=== PATIENT | male | born 1950 | race Caucasian/White ===

== ENCOUNTER 2017-04-22 21:32 | Inpatient (IN) | payer MEDICARE ==
[~2017-04-22] VITALS: Ht 172.7 cm; Wt 112.3 kg
[~2017-04-22 21:32] MED LIST: AMIT25TA9 PO; AMLO10TA2 PO; ASPI81TA11 PO; ATOR40TA16 PO; B12-1CHW CHEW; CALC600T25 PO; CYCL1TAB29 PO; CYMB30CA PO; FLAX10006 PO; GABA600T PO; HYDR25TA5 PO; LISI40TA PO; METO200T3 PO; NORC5TAB PO; TIZA2TAB PO; VENL75TA2 PO; VITACAP32; ZOLP5TAB3 PO
[2017-04-22 21:44] VITALS: BP 105/59; PULSE 71; RESP 20; TEMP 98.6; O2SAT 98
--- NOTE | 2017-04-22 21:45 | PD ---
HPI Chief Complaint: fall Time Seen by Provider: 21:37 Travel History International Travel<30 days: No Contact w/Intl Traveler<30days: No History of Present Illness HPI 66-year-old male states he lost his footing and injured his right ankle shortly prior to arrival. He does note drinking alcohol today. He did not hit his head or black out. He denies other concurrent complaints. He received 10 mg of morphine prior to arrival. Quality pain is sharp. Pain is currently about 5 out of 10. Pain is worse with movement. PFSH Past Medical History Narrative Medical Hypertension, elevated triglycerides Past Surgical History Narrative Surgical Gastric bypass, intestinal obstruction with exploratory laparoscopy, appendectomy Social History Alcohol Use: Yes Tobacco Use: No Allergies-Medications (Allergen,Severity, Reaction): Coded Allergies: No Known Allergies (Unverified , 03/17/17) Reported Meds & Prescriptions Reported Meds & Active Scripts Active Atorvastatin (Atorvastatin Calcium) 40 Mg Tab 40 Mg PO HS [place] (Hydrocodone-Acetaminophen) 5-325 mg Tab 1 Tab PO Q6H PRN Zolpidem (Zolpidem Tartrate) 5 Mg Tab 5 Mg PO HS PRN Gabapentin 600 Mg Tab 600 Mg PO TID Venlafaxine ER 24 HR (Venlafaxine HCl) 75 Mg Tab 75 Mg PO DAILY Tizanidine (Tizanidine HCl) 2 Mg Tab 2 Mg PO TID Amlodipine (Amlodipine Besylate) 10 Mg Tab 10 Mg PO DAILY Lisinopril 40 Mg Tab 40 Mg PO DAILY Hydrochlorothiazide 25 Mg Tab 25 Mg PO DAILY Metoprolol Succinate ER 24 HR (Metoprolol Succinate) 200 Mg Tab 200 Mg PO DAILY Amitriptyline (Amitriptyline HCl) 25 Mg Tab 25 Mg PO HS Reported Flaxseed Oil (Flaxseed (Linseed)) 1,000 Mg Cap 1,000 Mg PO DAILY Calcium (Calcium Carbonate) 600 Mg Tab 600 Mg PO DAILY [id number] (Methylcobalamin) 1 Mg Chew 1 Mg CHEW DAILY Aspirin EC (Aspirin) 81 Mg Tabdr 81 Mg PO DAILY Flexeril (Cyclobenzaprine HCl) 10 Mg Tab 10 Mg PO TID Cymbalta DR (Duloxetine HCl) 30 Mg Capdr 30 Mg PO DAILY Vitamin C (Vitamins C & E) Cap Review of Systems ROS Limitations: Poor Historian Except as stated in HPI: all other systems reviewed are Neg Physical Exam Exam Limitations: Poor Historian Narrative General: 66 y/o patient who is uncomfortable Skin: trauma noted to right ankle with abrasion over medial malleolus area Eyes: Pupils equal NECK: no pain with range of motion in midline Cardiovascular: Regular rate and rhythm Respiratory: Normal respiratory effort noted, clear to auscultation bilaterally Abdomen: soft, nontender, nondistended Extremities: Pain with palpation of right ankle with obvious deformity, no lacerations over, neurovascularly intact, no pain with rom of other joints Neuro: awake, alert, sensation and motor grossly intact other than ankle which is limited with acute fracture Data Data Last Documented VS Vital Signs Date Time Temp Pulse Resp B/P Pulse Ox O2 Delivery O2 Flow Rate FiO2 04/22/17 23:00 69 18 99/56 96 Nasal Cannula 3 04/22/17 21:44 98.6 Orders Ankle, Limited (Ap&Lat) (04/22/17 21:37) Electrocardiogram (04/22/17 21:37) Complete Blood Count With Diff (04/22/17 21:37) Comprehensive Metabolic Panel (04/22/17 21:37) Prothrombin Time / Inr (Pt) (04/22/17 21:37) Act Partial Throm Time (Ptt) (04/22/17 21:37) Type And Screen (04/22/17 21:37) Chest, Single Ap (04/22/17 21:37) Iv Access Insert/Monitor (04/22/17 21:37) Oximetry (04/22/17 21:37) Ecg Monitoring (04/22/17 21:37) Sodium Chloride 0.9% Flush (Ns Flush) (04/22/17 21:45) Diet Npo (04/23/17 Breakfast) Propofol 500 Mg/50 Ml Inj (Diprivan 500 (04/22/17 22:15) Ankle, Complete (Bmk1ldk) (04/22/17 ) Fiberglass Short Leg Splint Ad (04/22/17 ) Fiberglass Sugartong Sp Ad Sl (04/22/17 ) Ice Cuff (04/22/17 ) Consult Orthopedic (04/22/17 ) Cefazolin Inj (Ancef Inj) (04/22/17 23:30) Admit Order (Ed Use Only) (04/22/17 23:35) Labs Laboratory Tests Test 04/22/17 21:45 White Blood Count 10.7 TH/MM3 Red Blood Count 4.94 MIL/MM3 Hemoglobin 13.9 GM/DL Hematocrit 43.3 % Mean Corpuscular Volume 87.6 FL Mean Corpuscular Hemoglobin 28.2 PG Mean Corpuscular Hemoglobin 32.1 % Concent Red Cell Distribution Width 15.1 % Platelet Count 287 TH/MM3 Mean Platelet Volume 8.2 FL Neutrophils (%) (Auto) 46.8 % Lymphocytes (%) (Auto) 39.8 % Monocytes (%) (Auto) 10.6 % Eosinophils (%) (Auto) 2.0 % Basophils (%) (Auto) 0.8 % Neutrophils # (Auto) 5.0 TH/MM3 Lymphocytes # (Auto) 4.2 TH/MM3 Monocytes # (Auto) 1.1 TH/MM3 Eosinophils # (Auto) 0.2 TH/MM3 Basophils # (Auto) 0.1 TH/MM3 CBC Comment DIFF FINAL Differential Comment Prothrombin Time 9.9 SEC Prothromb Time International 0.9 RATIO Ratio Activated Partial 20.1 SEC Thromboplast Time Sodium Level 139 MEQ/L Potassium Level 4.6 MEQ/L Chloride Level 102 MEQ/L Carbon Dioxide Level 28.9 MEQ/L Anion Gap 8 MEQ/L Blood Urea Nitrogen 19 MG/DL Creatinine 1.33 MG/DL Estimat Glomerular Filtration 54 ML/MIN Rate Random Glucose 96 MG/DL Calcium Level 8.2 MG/DL Total Bilirubin 0.4 MG/DL Aspartate Amino Transf 28 U/L (AST/SGOT) Alanine Aminotransferase 23 U/L (ALT/SGPT) Alkaline Phosphatase 64 U/L Total Protein 7.0 GM/DL Albumin 3.7 GM/DL Blood Type AB POSITIVE Antibody Screen NEGATIVE Blood Bank Comment [facility] Medical Decision Making Medical Screen Exam Complete: Yes Emergency Medical Condition: Yes Medical Record Reviewed: Yes (past history confirm) Interpretation(s) CBC & BMP Diagram 04/22/17 21:45 Last 24 hours Impressions Chest X-Ray 04/22/172136 Signed Impressions: Service Date/Time: Saturday, April 22, 2017 21:52 - CONCLUSION: 1. Cardiomegaly. Dependent atelectasis. No pneumothorax or significant effusion. Bright Ordaz MD Ankle X-Ray 04/22/172136 Signed Impressions: Service Date/Time: Saturday, April 22, 2017 21:47 - CONCLUSION: 1. Fracture with medial dislocation of the right ankle. Bright Ordaz MD Ankle X-Ray 04/22/17 0000 Signed Impressions: Service Date/Time: Saturday, April 22, 2017 22:38 - CONCLUSION: 1. Persistent medial subluxation of the distal tibia. Fractures of the lateral malleolus and posterior malleolus region. Bright Ordaz MD Differential Diagnosis Fracture, dislocation, strain Narrative Course will check labs, xr and he will need reduced Ankle was reduced to the best of my abilities, splint place, will discuss with ortho Patient and updated and agree to admission Procedures Procedure Narrative After the risks and benefits were discussed the following procedure was performed, at bedside: After patient had received 10 mg of morphine but the ambulance team, reduction of right ankle with gentle traction, was neurovascularly intact after, patient tolerated procedure. We'll check x-ray, personally held while splint was placed Physician Communication Physician Communication dr erickson's pa states to keep npo, will put on for OR resident team agrees to admit Diagnosis Primary Impression: Fracture dislocation of right ankle Qualified Code: S82.891A - Fracture dislocation of right ankle, closed, initial encounter Admitting Information Admitting Physician Requests: Admit Zaida Cochran MD Apr 22, 2017 21:45
[2017-04-22 21:48] VITALS: RESP 20; O2SAT 89
[2017-04-22 21:49] VITALS: RESP 20; O2SAT 98
[2017-04-22] MEDS ORDERED: PROPOFOL 500 MG/50 ML BTL IV ONE (22:15)
--- NOTE | 2017-04-22 22:37 | RADRPT ---
EXAM DATE/TIME: 04/22/2017 21:52 [facility] COMPARISON: No previous studies available for comparison. INDICATIONS : Pre-op fracture ankle MEDICAL HISTORY : Unknown SURGICAL HISTORY : Unknown ENCOUNTER: Initial ACUITY: 1 day PAIN SCORE: 9/10 LOCATION: Bilateral chest FINDINGS: A single view of the chest demonstrates the lungs to be symmetrically aerated without evidence of mas s, infiltrate or effusion. The cardiomediastinal contours are prominent. Minimal dependent atelectas is. CONCLUSION: 1. Cardiomegaly. Dependent atelectasis. No pneumothorax or significant effusion. Bright Ordaz MD on April 22, 2017 at 22:35 Board Certified Radiologist. This report was verified electronically.
--- NOTE | 2017-04-22 22:39 | RADRPT ---
EXAM DATE/TIME: 04/22/2017 21:47 [facility] COMPARISON: No previous studies available for comparison. INDICATIONS : Trauma, right ankle deformity MEDICAL HISTORY : Unknown SURGICAL HISTORY : Unknown ENCOUNTER: Initial ACUITY: 1 day PAIN SCORE: 9/10 LOCATION: Right ankle FINDINGS: The medial and lateral malleolus are fractured and there is medial dislocation of the distal tibia on the talar dome. There is also some anterior displacement. CONCLUSION: 1. Fracture with medial dislocation of the right ankle. Bright Ordaz MD on April 22, 2017 at 22:36 Board Certified Radiologist. This report was verified electronically.
[2017-04-22 22:43] LABS: BASOPHIL # 0.1 TH/MM3 (0-0.2); BASOPHIL % 0.8 % (0.0-2.0); EOSINOPHIL # 0.2 TH/MM3 (0-0.4); HEMATOCRIT 43.3 % (39.0-51.0); HEMO FLAGS DIFF FINAL; LYMPH % 39.8 % (9.0-44.0); LYMPHOCYTE # 4.2 TH/MM3 (1.0-4.8); MEAN CELL VOLUME 87.6 FL (80.0-100.0); MEAN CORPUSCULAR HEMOGLOBIN 28.2 PG (27.0-34.0); MEAN CORPUSCULAR HGB CONC 32.1 % (32.0-36.0); MONO % 10.6 % (0.0-8.0); NEUT % 46.8 % (16.0-70.0); PLATELET COUNT 287 TH/MM3 (150-450); RED BLOOD COUNT 4.94 MIL/MM3 (4.50-5.90); RED CELL DISTRIBUTION WIDTH 15.1 % (11.6-17.2); WHITE BLOOD COUNT 10.7 TH/MM3 (4.0-11.0)
[2017-04-22 22:47] LABS: INTERNATIONAL NORMALIZED RATIO 0.9 RATIO; PROTHROMBIN TIME - PATIENT 9.9 SEC (9.8-11.6)
[2017-04-22 22:48] LABS: APTT (PATIENT) 20.1 SEC (24.3-30.1)
[2017-04-22 23:00] VITALS: BP 99/56; PULSE 69; RESP 18; O2SAT 96
--- NOTE | 2017-04-22 23:04 | RADRPT ---
EXAM DATE/TIME: 04/22/2017 22:38 [facility] COMPARISON: No previous studies available for comparison. INDICATIONS : Status post reduction. MEDICAL HISTORY : None. SURGICAL HISTORY : None. ENCOUNTER: Subsequent ACUITY: 1 day PAIN SCORE: 2/10 LOCATION: Right Ankle FINDINGS: Previous dislocation is partially reduced. Medial subluxation of the distal tibia remains. There is a fracture lateral malleolus and in also probably the posterior malleolus. CONCLUSION: 1. Persistent medial subluxation of the distal tibia. Fractures of the lateral malleolus and posterio r malleolus region. Bright Ordaz MD on April 22, 2017 at 23:01 Board Certified Radiologist. This report was verified electronically.
[2017-04-22 23:16] LABS: ALKALINE PHOSPHATASE 64 U/L (45-117); TOTAL BILIRUBIN ADULT 0.4 MG/DL (0.2-1.0)
[2017-04-22 23:17] LABS: ALT (GPT) 23 U/L (12-78); ANION GAP 8 MEQ/L (5-15); AST (GOT) 28 U/L (15-37); BICARBONATE 28.9 MEQ/L (21.0-32.0); BLOOD UREA NITROGEN 19 MG/DL (7-18); CHLORIDE 102 MEQ/L (98-107); GLOMERULAR FILTRATION RATE 54 ML/MIN (>89); SODIUM (NA) 139 MEQ/L (136-145)
[2017-04-22 23:25] LABS: POTASSIUM 4.6 MEQ/L (3.5-5.1)
--- NOTE | 2017-04-22 23:41 | HHI.HP ---
HPI Service Family Medicine Primary Care Physician Carlo Mayorga MD Admission Diagnosis ankle fracture dislocation Diagnoses: International Travel<30 Days: No Contact w/Intl Traveler<30days: No Known Affected Area: No History of Present Illness Mr. Barba is a pleasant 66-year-old male, with a past medical history of HTN, hypercholesterolemia, insomnia, and chronic pain,presenting with an acute fracture of his right fibula. He reports that he was drinking at his condo tonight. He missed his step, after he lost perception of the depth. He says that he was on the ground for 30 minutes, but he does not remember any of this. He denies hearing a pop or snap. He stumbled after twisting his ankle and denies falling down/hitting his head. He reports drinking 10 liqueur (ekaterina beam and diet cokes) tonight. He denies any previous withdrawal from EtOH. He denies any chest pain prior to falling or feeling lightheaded. +Headache, frontal 4 out of 10. New since fall. ROS negative for SOB, chest pain, palpitations, abdominal pain, change in vision. (Noe Muller MD R2) Review of Systems Other As per HPI (Noe Muller MD R2) Past Family Social History Past Medical History Past medical history: HTN hypercholesterolemia Insomnia Back injury with worker's compensation in 1976 -chronic back pain history of obstructive sleep apnea when he was heavier history of small bowel obstruction Past surgical history: Appendectomy tonsillectomy . [place] Gastric bypass 08/2004 Umbilical hernia repair 2005May 2011 emergent exploratory laparotomy with small bowel resection due to obstruction, and repair of internal hernia. Postoperatively, he dehisced and formed an enterocutaneous fistula. History of gastrojejunal stricture with dilatation 09/2011: [facility], Surgeon Dr. Jacky Cedeno MD- small bowel resection for enterocutaneous fistula (ECF) repair, partial gastrectomy, and re-formation of the gastroenteroanastomosis with an EEA 21mm Stapler. 03/2012 patient had two recurrent non-healing wounds on abdominal wall that had been closed, but then re- opened. This is consistent with another stitch granuloma. 2 Stitches were removed by Dr. Cedeno. 08/25 - [facility]. One year out from fistula repair, had area of punctate oozing concerning for retained sutures. Patient had two retained sutures removed at bedside 2016- Patient seen by Dr. Wren- wound healed. Patient has PRN [id number] if infection develops 2016- Screening colonoscopy Family history: Dad at 70 yrs old, and had history of heart problems, (CAD), and [place]. Mom at 83, and had diabetes. One brother with colon cancer diagnosed at age 45. non-smoker. one brother has CAD, history of stents put in. 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 Patient reports riding bicycle for exercise Currently smokes 1/2 ppd for 40 years. Intermittently quits, has not been smoking for 4 months. 3 cups of coffee a day Patient reports drinking 3-4 drinks twice a week, denies drinking regularly other days (patient previously reported drinking more, ~8 drinks per day) Health Maintenance: Colonoscopy - 2016- polyps, repeat in 3 years (per patient) PSA - 2015, wnl. Pneumonia vaccine -23 V due at age 66 Zostavax - completed at age 61 Tetanus - last 2008, due 2019 Flu Vaccine- UTD 2014 (Noe Muller MD R2) Allergies: Coded Allergies: No Known Allergies (Unverified , 03/17/17) Physical Exam Vital Signs Vital Signs Date Time Temp Pulse Resp B/P Pulse Ox O2 Delivery O2 Flow Rate FiO2 04/22/17 23:00 69 18 99/56 96 Nasal Cannula 3 04/22/17 22:13 78 18 98 Nasal Cannula 3 04/22/17 21:49 20 98 Nasal Cannula 3 04/22/17 21:48 20 89 Room Air 04/22/17 21:44 98.6 71 20 105/59 98 Physical Exam GENERAL:Appears intoxicated but in NAD. SKIN: large ventral abdominal scar HEAD: Atraumatic. Normocephalic. No temporal or scalp tenderness. EYES: Pupils equal round and reactive. ENT: Nose without bleeding, purulent drainage or septal hematoma. NECK: Trachea midline. No JVD or lymphadenopathy. Supple, nontender, no meningeal signs. CARDIOVASCULAR: Faint heart sounds. No murmurs appreciated. RESPIRATORY: Clear to auscultation. Breath sounds equal bilaterally. GASTROINTESTINAL: Abdomen soft, non-tender, nondistended. MUSCULOSKELETAL: Right lower extremity in sugar-tongue splint. Full sensation to leg and toes, moving his extremity normally, moving all digits, brisk cap refill. NEUROLOGICAL: Awake and alert. Cranial nerves II through XII intact. Laboratory Laboratory Tests Test 04/22/17 21:45 White Blood Count 10.7 Red Blood Count 4.94 Hemoglobin 13.9 Hematocrit 43.3 Mean Corpuscular Volume 87.6 Mean Corpuscular Hemoglobin 28.2 Mean Corpuscular Hemoglobin 32.1 Concent Red Cell Distribution Width 15.1 Platelet Count 287 Mean Platelet Volume 8.2 Neutrophils (%) (Auto) 46.8 Lymphocytes (%) (Auto) 39.8 Monocytes (%) (Auto) 10.6 Eosinophils (%) (Auto) 2.0 Basophils (%) (Auto) 0.8 Neutrophils # (Auto) 5.0 Lymphocytes # (Auto) 4.2 Monocytes # (Auto) 1.1 Eosinophils # (Auto) 0.2 Basophils # (Auto) 0.1 CBC Comment DIFF FINAL Differential Comment Prothrombin Time 9.9 Prothromb Time International 0.9 Ratio Activated Partial 20.1 Thromboplast Time Sodium Level 139 Potassium Level 4.6 Chloride Level 102 Carbon Dioxide Level 28.9 Anion Gap 8 Blood Urea Nitrogen 19 Creatinine 1.33 Estimat Glomerular Filtration 54 Rate Random Glucose 96 Calcium Level 8.2 Total Bilirubin 0.4 Aspartate Amino Transf 28 (AST/SGOT) Alanine Aminotransferase 23 (ALT/SGPT) Alkaline Phosphatase 64 Total Protein 7.0 Albumin 3.7 Blood Type AB POSITIVE Antibody Screen NEGATIVE Blood Bank Comment (Noe Muller MD R2) Result Diagram: 04/22/17214404/22/172144 Imaging Last 72 hours Impressions Chest X-Ray 04/22/172136 Signed Impressions: Service Date/Time: Saturday, April 22, 2017 21:52 - CONCLUSION: 1. Cardiomegaly. Dependent atelectasis. No pneumothorax or significant effusion. Bright Ordaz MD Ankle X-Ray 04/22/172136 Signed Impressions: Service Date/Time: Saturday, April 22, 2017 21:47 - CONCLUSION: 1. Fracture with medial dislocation of the right ankle. Bright Ordaz MD Ankle X-Ray 04/22/17 0000 Signed Impressions: Service Date/Time: Saturday, April 22, 2017 22:38 - CONCLUSION: 1. Persistent medial subluxation of the distal tibia. Fractures of the lateral malleolus and posterior malleolus region. Bright Ordaz MD (Noe Muller MD R2) Septic Shock Reassessment Heart: Regular rate and rhythm Lungs: Clear Skin: Warm Peripheral Pulses: Bounding Right Radial Bounding Left Radial Capillary Refill: <2 seconds (Noe Muller MD R2) Assessment and Plan Assessment and Plan Mr. Barba is a 65 yo male with PMH of HTN, hypercholesterolemia, insomnia, and chronic pain, presenting with an acute fracture of his distal fibula and medial dislocation of the distal tibia at the tibiotalar joint. Will be admitted for pain control and possible surgical correction. Code Status Full Code. (Noe Muller MD R2) Attending Attestation The patient has been seen and examined. The chart and all resident notes have been reviewed. I agree that inpatient care is appropriate and that a two midnight stay is expected for the reasons documented in the resident history and physical. I have discussed this with the resident and certify the resident s order for inpatient admission. (Coni Nina MD) Problem List: (1) Fracture dislocation of right ankle Status: Acute Plan: Xray in ED showing "Fracture with medial dislocation of right ankle." Reduced in ED by Dr. Cochran. Sugar-tongue splint in place. Neurovascularly intact on exam. Consult orthopedics. We appreciate their care of Mr. Barba. Pain control as follows: Morphine 2 mg IV pain 1-5 Morphine 5 mg IV pain 6-10 Dilaudid 0.5 mg breakthough q 3 hrs. NPO after midnight. NS 125 ml/hr (2) Hypercholesteremia Status: Acute Plan: Continue statin therapy. (3) Hypertension Status: Acute Plan: Continue home BP medication. BP low in ED 85/55. Hold home amlodipine. Continue lisinopril 40 daily, HCTZ 25 daily, and metoprolol 200 ER daily. (4) Depression Status: Acute Plan: Continue home Effexor, and amitriptyline. Hold Cymbalta given similar MOA as Effexor. (5) Chronic pain Status: Acute Plan: Pain control as above. (6) Alcohol abuse Status: Acute Plan: CIWA protocol. (7) Nutrition, metabolism, and development symptoms Status: Acute Plan: Fluids: NS 125 ml.hr Electrolytes: At goal DVT ppx: hold given poss of surgery wdw Dr. Nina. (Noe Muller MD R2) Physician Certification 2 Midnight Certification Type: Admission for Inpatient Services Order for Inpatient Services The services are ordered in accordance with Medicare regulations or non- Medicare payer requirements, as applicable. In the case of services not specified as inpatient-only, they are appropriately provided as inpatient services in accordance with the 2-midnight benchmark. Estimated LOS (days): 2 2 days is the estimated time the patient will need to remain in the hospital, assuming treatment plan goals are met and no additional complications. Post-Hospital Plan: Home (Noe Muller MD R2) Problem Qualifiers (1) Fracture dislocation of right ankle: Qualified Code: S82.891A - Fracture dislocation of right ankle, closed, initial encounter Noe Muller MD R2 Apr 22, 2017 23:40 Coni Nina MD Apr 23, 2017 15:11
[2017-04-23] VITALS (7 sets, daily range): BP systolic 100–136; BP diastolic 58–75; PULSE 55–75; RESP 17–20; TEMP 97.1–98.6; O2SAT 93–96
[2017-04-23] MEDS ORDERED: ZOLPIDEM TARTRATE 5 MG TAB PO PRN
[2017-04-23] MEDS ORDERED: HYDROmorphone HCL PF 1 MG/ML VIAL IV PRN
[2017-04-23] MEDS: SODIUM CHLOR 0.9% 1000 ML INJ 1,000 ML IV SCH ×3 (00:57→15:54)
[2017-04-23] MEDS ORDERED: SODIUM CHLORID 0.9% 500 ML IV PRN (01:30)
[2017-04-23] MEDS ORDERED: INSULIN HUMAN REGULAR 1,000 UNITS/10 ML VIAL SQ PRN (01:30)
[2017-04-23] MEDS ORDERED: CHLORHEXIDINE GLUCONATE 2 % 1 PACK (2 CLOTHS) TOPICAL PRN (01:30)
[2017-04-23] MEDS ORDERED: POVIDONE IODINE 5% (ANTISEPSIS KIT) 4 APPLICATIONS EACH NARE PRN (01:30)
[2017-04-23] MEDS ORDERED: LACTATED RINGER'S 1000 ML IV PRN (01:30)
[2017-04-23] MEDS: MORPHINE SULFATE 8 MG/ML INJ IV PUSH PRN ×2 (01:37→05:26)
[2017-04-23] MEDS ORDERED: VITA2000 PO (06:46)
[2017-04-23] MEDS ORDERED: ERGO1CAP30 PO (06:46)
[2017-04-23] MEDS ORDERED: CALCTAB19 PO (06:46)
[2017-04-23] MEDS ORDERED: HYDR-3580 PO (06:46)
[2017-04-23] MEDS ORDERED: WALKER/ADULT/FO1 MIS (06:47)
--- NOTE | 2017-04-23 06:49 | PD.ORT.PN ---
Subjective Subjective Remarks s/p fall while drinking and right ankle pain no other complaints. Objective Vitals Vital Signs Date Time Temp Pulse Resp B/P Pulse Ox O2 Delivery O2 Flow Rate FiO2 04/23/17 04:00 97.1 66 17 118/75 94 04/23/17 01:20 97.4 64 17 117/63 96 04/23/17 01:01 75 20 100/58 95 Nasal Cannula 3 04/22/17 23:00 69 18 99/56 96 Nasal Cannula 3 04/22/17 22:13 78 18 98 Nasal Cannula 3 04/22/17 21:49 20 98 Nasal Cannula 3 04/22/17 21:48 20 89 Room Air 04/22/17 21:44 98.6 71 20 105/59 98 Result Diagram: 04/22/17214404/22/172144 Other Results Laboratory Tests Test 04/22/17 21:45 Prothrombin Time 9.9 SEC (9.8-11.6) Prothromb Time International 0.9 RATIO Ratio Imaging Last 24 hours Impressions Chest X-Ray 04/22/172136 Signed Impressions: Service Date/Time: Saturday, April 22, 2017 21:52 - CONCLUSION: 1. Cardiomegaly. Dependent atelectasis. No pneumothorax or significant effusion. Bright Ordaz MD Ankle X-Ray 04/22/172136 Signed Impressions: Service Date/Time: Saturday, April 22, 2017 21:47 - CONCLUSION: 1. Fracture with medial dislocation of the right ankle. Bright Ordaz MD Objective Remarks RLE: +short leg splint. intact. NVI. full motion of knee and hip with no pain Assessment & Plan Assessment and Plan 1) Right Ankle Fx/dislocation -NWB -consents -surgery today Josesito Hernández Apr 23, 2017 06:49
[2017-04-23] MEDS: METOPROLOL SUCCINATE 50 MG EXTENDED RELEASE TAB PO SCH (07:05)
[2017-04-23] MEDS ORDERED: GENTAMICIN SULFATE 80 MG/2 ML VIAL ONE (07:39)
[2017-04-23] MEDS ORDERED: ceFAZolin 2 GM PREMIX 50 ML ONE (07:43)
[2017-04-23] MEDS ORDERED: VANCOMYCIN HCL 1000 MG VIAL ONE (07:43)
[2017-04-23] MEDS ORDERED: SODIUM CHLOR 0.9% 250 ML INJ 250 ML ONE (07:43)
[2017-04-23] MEDS ORDERED: GABAPENTIN 300 MG CAP PO SCH (09:00)
[2017-04-23] MEDS: HYDROCHLOROTHIAZIDE 25 MG TAB PO SCH (09:00)
[2017-04-23] MEDS ORDERED: LISINOPRIL 20 MG TAB PO SCH (09:00)
[2017-04-23] MEDS: ASPIRIN EC 81 MG TABEC PO SCH (09:00)
[2017-04-23] MEDS: CALCIUM CARBONATE 1.25 GM (CA 500 MG) TAB PO SCH (09:00)
[2017-04-23] MEDS: VENLAFAXINE HCL XR 75 MG CAP PO SCH (09:00)
[2017-04-23] MEDS ORDERED: LORazepam 2 MG/ML VIAL IV PUSH PRN ×4 (09:15)
[2017-04-23] MEDS ORDERED: DIPHTH/TETANUS/ACEL PERTUSSIS (BOOSTER) 0.5 ML VIAL/PFS IM ONE (09:15)
[2017-04-23] MEDS ORDERED: HALOPERIDOL LACTATE 5 MG/ML AMP IM PRN (09:15)
[2017-04-23] MEDS ORDERED: LORazepam 1 MG TAB PO PRN (09:15)
[2017-04-23] MEDS ORDERED: LORazepam 2 MG TAB PO PRN (09:15)
[2017-04-23] MEDS ORDERED: FLUMAZENIL 0.5 MG/5 ML VIAL IV PUSH PRN (09:15)
--- NOTE | 2017-04-23 09:26 | PD.OP ---
cc: Vicente Zamora MD Operative Report Date of Surgery: Apr 23, 2017 Preoperative Diagnosis: Displaced right ankle fracture Postoperative Diagnosis: Procedure: Open reduction internal fixation right distal fibula Anesthesia: Gen. Surgeon: Vicente Zamora Trim Operator(s): CORETTA Cannon PA-C The surgical procedure was assisted by my physician store administrative assistant. My P.A. presence was necessary throughout this case for the manipulation and positioning of the surgical extremity. My P.A. was assisting me throughout the duration of this procedure. The skill set of a physician store administrative assistant was medically necessary to complete this procedure. During the surgical case the surgical dressing maker was working at the back table and the physician store administrative assistant was directly assisting me. Operation and Findings: Patient was seen and evaluated preoperatively and found to have a displaced ankle fracture. Informed consent was obtained after a detailed discussion of risk and benefits of surgery. The operative site was marked. Patient was brought to the OR, placed on the OR table, and given IV sedation and general endotracheal anesthesia. IV antibiotics were given preoperatively. A timeout procedure was performed. The left leg was prepped with alcohol followed by Hibiclens and draped in the usual sterile fashion. Attention was turned towards the distal fibula. A four-inch incision was made over the distal fibula. The subcutaneous tissue was dissected with Bovie. The fracture site was visualized. The fracture site was cleaned with curets. The fracture was now reduced. The fracture keyed into anatomic alignment. K-wires were used to h old provisional fixation. A 2.7 cortical lag screw was used to compress fracture. Next, A Synthes plate was selected. The plate was provisionally held to bone with K-wires. 3.5 cortical screws were used to compress the plate to bone. Multiple cortical screws were placed above and below the fracture. Next, attention was turned to the syndesmosis. The syndesmosis was stressed. There was no widening of the syndesmosis with external rotation of the ankle or manual distraction of the fibula. Incisions were thoroughly irrigated. The subcutaneous tissue was closed with 3-0 PDS and the skin was closed with 3-0 nylon. Sterile dressings were applied. The patient was transferred to Recovery in stable condition. Vicente Zamora MD Apr 23, 2017 09:26
[2017-04-23] MEDS ORDERED: ACETAMINOPHEN/HYDROcodone 325 MG/7.5 MG TAB PO PRN (09:30)
[2017-04-23] MEDS ORDERED: MORPHINE SULFATE 4 MG/ML INJ IV PUSH PRN ×3 (09:30→18:15)
[2017-04-23] MEDS ORDERED: Post-op Orders (for Pharmacy) MISC XX ONE (09:30)
[2017-04-23] MEDS ORDERED: DO NOT ADM ANY ANTICOAGULANT DRUGS PRN (09:43)
[2017-04-23] MEDS ORDERED: MORPHINE SULFATE 8 MG/ML INJ ONE (09:52)
[2017-04-23] MEDS ORDERED: MIDAZOLAM HCL 2 MG/2 ML VIAL ONE (09:54)
[2017-04-23] MEDS ORDERED: fentaNYL CITRATE 250 MCG/5 ML AMP ONE (09:54)
[2017-04-23] MEDS ORDERED: *MEPERIDINE 25 MG INJ VIAL PERIprocedural Use ONLY ONE (10:07)
--- NOTE | 2017-04-23 10:24 | RADRPT ---
EXAM DATE/TIME: 04/23/2017 09:11 [facility] COMPARISON: ANKLE RIGHT COMPLETE ([id number]), April 22, 2017, 22:38. ANKLE RIGHT LIMITED (AP&LAT), April 22, 2017, 2 1:47. INDICATIONS : Open reduction right ankle. MEDICAL HISTORY : None. SURGICAL HISTORY : None. ENCOUNTER: Subsequent ACUITY: 2 days PAIN SCORE: Non-responsive. LOCATION: Right lateral FINDINGS: Anatomic alignment across the fracture dislocation of the ankle. CONCLUSION: Anatomic alignment. Chriss Mc MD FACR on April 23, 2017 at 10:21 Board Certified Radiologist. This report was verified electronically.
[2017-04-23] MEDS ORDERED: PROPOFOL 200 MG/20 ML AMP IV ONE (12:00)
[2017-04-23] MEDS ORDERED: BISACODYL EC 5 MG TABEC PO PRN (12:00)
[2017-04-23] MEDS ORDERED: PHENYLEPH/NS 1000 MCG/10 ML SYR IV ONE (12:00)
[2017-04-23] MEDS ORDERED: LACTATED RINGER'S 1000 ML INJ 1,000 ML IV ONE (12:00)
[2017-04-23] MEDS ORDERED: ePHEDrine/NS 25 MG/5 ML SYR IV ONE (12:00)
[2017-04-23] MEDS ORDERED: ONDANSETRON HCL 4 MG/2 ML VIAL IV PUSH ONE (12:00)
[2017-04-23] MEDS: ACETAMINOPHEN/HYDROcodone 325 MG/7.5 MG TAB PO PRN ×2 (12:35→18:15)
[2017-04-23] MEDS: SODIUM CHLORIDE 0.9% FLUSH 10 ML FLUSH IVF PRN (12:36)
[2017-04-23 12:44] LABS: BICARBONATE 30.2 MEQ/L (21.0-32.0); POTASSIUM 3.8 MEQ/L (3.5-5.1)
[2017-04-23] MEDS: DOCUSATE SODIUM 50 MG/SENNA 8.6 MG TAB PO SCH ×2 (12:46→21:08)
[2017-04-23] MEDS: GABAPENTIN 300 MG CAP PO SCH ×2 (12:46→21:08)
--- NOTE | 2017-04-23 15:04 | MB ---
cc: ROSSANA PRIEST DATE OF CONSULTATION 04/23/2017 REASON FOR CONSULTATION Right ankle fracture. CONSULTING PHYSICIAN Dr. Nina HISTORY Chriss is a 63-year-old male who has multiple medical problems. He was drinking alcohol. He stepped awkwardly on his right ankle and had a twisting injury. He had immediate right ankle pain. He is unable to stand or ambulate. He presented to the emergency room where x-rays revealed a displaced right ankle fracture. He is currently awake, alert on the orthopedic floor. His only complaint is right ankle. He denies dizziness, syncope or loss of consciousness. He does not clearly recall the incident because he was drinking alcohol. PAST MEDICAL HISTORY/ILLNESSES Hypertension. High cholesterol. Chronic back pain. COPD. SURGERIES Appendectomy, tonsillectomy and gastric bypass, hernia repair FAMILY HISTORY Family history is positive for coronary artery disease in his father and diabetes in his mother and colon cancer in a brother. SOCIAL HISTORY The patient is . He quit smoking 4 months ago. He drinks a few days a week. REVIEW OF SYSTEMS The patient denies headache, visual changes, neck pain, chest pain, shortness of breath, abdominal pain, nausea, vomiting or recent weight loss. He complains of the right ankle pain. Pain is worse with movement. PHYSICAL EXAMINATION GENERAL: The patient is well-developed, well-nourished 66-year-old male who is mildly overweight. He is awake and alert. VITAL SIGNS: Temperature 98.1, pulse 72, respirations 18, blood pressure 136/74, O2 sat 95% on room air. HEENT: Head, the patient is normocephalic. Pupils are equal. NECK: Soft, nontender. Trachea is midline. ABDOMEN: Soft, nontender, nondistended. EXTREMITIES: Examination of bilateral upper extremities reveals no pain with shoulder, elbow or wrist motion. He has intact sensation in all fingers. He has good cap refill in all fingers. Skin is intact. Radial pulses are palpable. Examination of left leg reveals no pain with hip, knee or ankle motion. Skin is intact. Dorsalis pedis pulses palpable. Examination of right leg reveals no pain with hip or knee motion. He is diffusely tender around the ankle. There is mild swelling of the ankle. Skin is intact. He has pain with ankle motion. Dorsalis pedis pulses palpable. IMAGING STUDIES X-rays of right ankle were reviewed. X-rays revealed a displaced right ankle fracture. The fibula is displaced with dislocation of the ankle. IMPRESSION Right ankle fracture-dislocation. PLAN Treatment options were discussed with the patient. At this point I would recommend open reduction, internal fixation of right ankle. The risks of surgery include bleeding, infection, injury to artieres, nerves and blood vessels, nonunion, malunion, painful hardware, ankle stiffness, loss of motion, painful hardware as well as medical complications including blood clot, stroke, heart attack and . All questions were answered. I will plan on surgery today. A mid-level provider in my office, nurse practitioner or PA, may see this patient on a follow-up basis and continue to implement the objective of this plan including: Starting or adjusting medications, injections of muscle, tendon, bursa or joints, cast application, orthotic or brace application, physical therapy, further radiographic studies including x-ray, MRI, CT, ultrasounds or bone scan, vascular studies, neurologic studies, or other specialist consultations, and proceeding with surgical management as appropriate. MD QASIM Jackson/SAURABH /9:31 AM /2:47 PM
--- NOTE | 2017-04-23 15:25 | HHI.FPPN ---
Subjective Subjective Patient seen and examined with the resident team post-operatively Case reviewed and discussed Please refer to resident H&P for further details regarding HPI, ROS, PMH, SurgHx , FH and SocHx In summary, patient is a 66yoM with fell while intoxicated and sustained a fracture with medial dislocation of the R ankle. He is seen post-operatively with his by the bedside. Pain is present, but controlled Hospital Objective Objective Last Impressions Ankle X-Ray 04/23/17 0000 Signed Impressions: Service Date/Time: Sunday, April 23, 2017 09:11 - CONCLUSION: Anatomic alignment. Chriss Mc MD FACR Chest X-Ray 04/22/172136 Signed Impressions: Service Date/Time: Saturday, April 22, 2017 21:52 - CONCLUSION: 1. Cardiomegaly. Dependent atelectasis. No pneumothorax or significant effusion. Bright Ordaz MD Laboratory Tests - Abnormals Test 04/22/17 04/23/17 21:45 11:53 Monocytes (%) (Auto) 10.6 % Monocytes # (Auto) 1.1 TH/MM3 Activated Partial 20.1 SEC Thromboplast Time Blood Urea Nitrogen 19 MG/DL 20 MG/DL Creatinine 1.33 MG/DL Estimat Glomerular Filtration 54 ML/MIN 75 ML/MIN Rate Calcium Level 8.2 MG/DL 7.9 MG/DL Ethyl Alcohol Level 188 MG/DL Vital Signs 04/22/17 04/22/17 04/22/17 04/22/17 21:44 21:48 21:49 22:13 Temp 98.6 Pulse 71 78 Resp 20 18 B/P 105/59 Pulse Ox 98 89 98 98 O2 Delivery Room Air Nasal Cannula Nasal Cannula O2 Flow Rate 3 3 04/22/17 04/23/17 04/23/17 04/23/17 23:00 01:01 01:20 04:00 Temp 97.4 97.1 Pulse 69 75 64 66 Resp 17 B/P 99/56 100/58 117/63 118/75 Pulse Ox 96 95 96 94 O2 Delivery Nasal Cannula Nasal Cannula O2 Flow Rate 3 3 04/23/17 04/23/17 04/23/17 04/23/17 08:00 09:43 09:45 09:57 Temp 98.1 98.0 Pulse 72 72 73 Resp 18 19 16 15 B/P 136/74 139/77 141/76 Pulse Ox 95 91 95 O2 Delivery Nasal Cannula Nasal Cannula O2 Flow Rate 3 3 04/23/17 04/23/17 04/23/17 04/23/17 10:00 10:15 10:30 11:18 Temp 98.5 Pulse 69 70 67 Resp 16 16 16 B/P 148/85 149/79 145/79 Pulse Ox 94 94 95 O2 Delivery Nasal Cannula Nasal Cannula Nasal Cannula Nasal Cannula O2 Flow Rate 3 3 3 3.00 04/23/17 12:00 Temp 98.6 Pulse 68 Resp 18 B/P 121/73 Pulse Ox 93 INTAKE & OUTPUT 04/23/17 07:00 Intake Total 0 ml Output Total 500 ml Balance -500 ml Physical exam GENERAL: wdwn male, resting in bed SKIN: Warm and dry. No rashes HEAD: Normocephalic.AT EYES: No scleral icterus. No injection or drainage. ENT: OP clear. MMM NECK: Supple, trachea midline. No JVD or lymphadenopathy. CARDIOVASCULAR: Regular rate and rhythm without murmurs, gallops, or rubs. RESPIRATORY: Breath sounds equal bilaterally. No accessory muscle use. GASTROINTESTINAL: Abdomen soft, non-tender, nondistended. Healed abdominal scars from prior surgeries. Hypoactive BS MUSCULOSKELETAL: No cyanosis, or edema. No calf tenderness. R ankle immobilized post-operatively, NV intact distal to surgical site. BACK: Nontender without obvious deformity. No CVA tenderness. NEURO: Awake and alert. Normal speech. CN grossly intact. Assessment Assessment 66yoM with: R ankle fracture and dislocation HTN Heavy alcohol use Acute kidney injury hypercholesterolemia Insomnia Back injury with worker's compensation in 1976 -chronic back pain history of obstructive sleep apnea when he was heavier history of small bowel obstruction PLAN PLAN Ortho consult for operative repair, management Bowel regimen PT Pain control IVF and repeat BMP to monitor renal function Resume home meds as appropriate DVT proph 24 post-op Patient seen and examined. Case reviewed and discussed Agree with plan of care as discussed with me and documented in the resident note. Coni Nina MD Apr 23, 2017 15:25
[2017-04-23] MEDS ORDERED: ceFAZolin 2 GM PREMIX 50 ML IV SCH (16:00)
[2017-04-23] MEDS: LISINOPRIL 20 MG TAB PO SCH (21:08)
[2017-04-23] MEDS: AMITRIPTYLINE HCL 25 MG TAB PO SCH (21:08)
[2017-04-23] MEDS: ATORVASTATIN 40 MG TAB PO SCH (21:08)
[2017-04-24] VITALS (7 sets, daily range): BP systolic 92–152; BP diastolic 56–74; PULSE 55–69; RESP 18–20; TEMP 96–98.4; O2SAT 92–95
[2017-04-24] MEDS: ACETAMINOPHEN/HYDROcodone 325 MG/7.5 MG TAB PO PRN (03:07)
[2017-04-24] MEDS: SODIUM CHLOR 0.9% 1000 ML INJ 1,000 ML IV SCH ×2 (03:14→08:42)
[2017-04-24 07:00] LABS: BASOPHIL % 0.4 % (0.0-2.0); EOSINOPHIL # 0.1 TH/MM3 (0-0.4); EOSINOPHIL % 1.4 % (0.0-4.0); HEMATOCRIT 36.2 % (39.0-51.0); HEMO FLAGS DIFF FINAL; LYMPH % 25.7 % (9.0-44.0); LYMPHOCYTE # 2.7 TH/MM3 (1.0-4.8); MEAN CELL VOLUME 86.5 FL (80.0-100.0); MEAN CORPUSCULAR HEMOGLOBIN 29.1 PG (27.0-34.0); MEAN CORPUSCULAR HGB CONC 33.6 % (32.0-36.0); MONO % 15.6 % (0.0-8.0); NEUT % 56.9 % (16.0-70.0); PLATELET COUNT 248 TH/MM3 (150-450); RED BLOOD COUNT 4.19 MIL/MM3 (4.50-5.90); RED CELL DISTRIBUTION WIDTH 15.1 % (11.6-17.2); WHITE BLOOD COUNT 10.5 TH/MM3 (4.0-11.0)
[2017-04-24] MEDS ORDERED: MORPHINE SULFATE 4 MG/ML INJ IV PUSH PRN ×2 (07:15→12:30)
--- NOTE | 2017-04-24 07:15 | PD.ORT.PN ---
Subjective Subjective Remarks POD 1 s/p ORIF right ankle reports pain in ankle. was out of bed with walker to chair. Objective Vitals Vital Signs Date Time Temp Pulse Resp B/P Pulse Ox O2 Delivery O2 Flow Rate FiO2 04/24/17 03:29 98.4 55 19 103/64 93 04/24/17 00:28 98.0 58 20 103/71 92 04/23/17 23:10 98.3 55 20 119/65 94 04/23/17 21:00 Room Air 04/23/17 16:00 97.1 56 18 110/65 95 04/23/17 12:00 98.6 68 18 121/73 93 04/23/17 11:18 Nasal Cannula 3.00 04/23/17 10:30 98.5 67 16 145/79 95 Nasal Cannula 3 04/23/17 10:15 70 16 149/79 94 Nasal Cannula 3 04/23/17 10:00 69 16 148/85 94 Nasal Cannula 3 04/23/17 09:57 15 04/23/17 09:45 73 16 141/76 95 Nasal Cannula 3 04/23/17 09:43 98.0 72 19 139/77 91 Nasal Cannula 3 04/23/17 08:00 98.1 72 18 136/74 95 I/O 04/23/17 04/23/17 04/23/17 04/24/17 04/24/17 04/24/17 07:00 15:00 23:00 07:00 15:00 23:00 Intake Total 0 ml 1280 ml 840 ml Output Total 500 ml 30 ml 800 ml Balance -500 ml 1250 ml 40 ml Intake Oral 0 ml 480 ml 840 ml IV Total 100 ml Other 700 ml Output Urine Total 500 ml 800 ml Estimated Blood Loss 30 ml # Voids 3 2 # Bowel Movements 0 0 0 Result Diagram: 04/24/17 0612 04/23/17 1153 Imaging Last 24 hours Impressions Chest X-Ray 04/22/172136 Signed Impressions: Service Date/Time: Saturday, April 22, 2017 21:52 - CONCLUSION: 1. Cardiomegaly. Dependent atelectasis. No pneumothorax or significant effusion. Bright Ordaz MD Ankle X-Ray 04/22/172136 Signed Impressions: Service Date/Time: Saturday, April 22, 2017 21:47 - CONCLUSION: 1. Fracture with medial dislocation of the right ankle. Bright Ordaz MD Objective Remarks RLE: +short leg splint. intact. NVI. full motion of knee and hip with no pain Assessment & Plan Assessment and Plan 1) Right Ankle Fx/dislocation s/p ORIF - POD 1 -NWB -elevate -PT for gait training with walker -pain control -will restart IV morphine for breakthrough pain -ortho cleared for DC home when safe with therapy and pain controlled. may need to stay til tomorrow -f/u with [facility] or [facility] in 2 weeks Josesito Hernández Apr 24, 2017 07:15
[2017-04-24 07:26] LABS: BICARBONATE 32.5 MEQ/L (21.0-32.0); POTASSIUM 3.6 MEQ/L (3.5-5.1)
[2017-04-24 07:38] LABS: CALCIUM-PROTEIN CORRECTED 7.8 MG/DL (8.5-10.1)
[2017-04-24] MEDS: VENLAFAXINE HCL XR 75 MG CAP PO SCH (08:20)
[2017-04-24] MEDS: GABAPENTIN 300 MG CAP PO SCH ×2 (08:20→20:42)
[2017-04-24] MEDS: HYDROCHLOROTHIAZIDE 25 MG TAB PO SCH (08:21)
[2017-04-24] MEDS: CALCIUM CARBONATE 1.25 GM (CA 500 MG) TAB PO SCH ×2 (08:21→20:42)
[2017-04-24] MEDS: ASPIRIN EC 81 MG TABEC PO SCH (08:22)
[2017-04-24] MEDS: DOCUSATE SODIUM 50 MG/SENNA 8.6 MG TAB PO SCH ×2 (08:22→20:41)
[2017-04-24] MEDS: LISINOPRIL 20 MG TAB PO SCH ×2 (08:22→20:42)
[2017-04-24] MEDS: METOPROLOL SUCCINATE 50 MG EXTENDED RELEASE TAB PO SCH (08:23)
--- NOTE | 2017-04-24 09:59 | EKG ---
Date Performed: 04/22/2017 Time Performed: 21:46:39 PTAGE: 66 years EKG: Sinus rhythm WITH FIRST DEGREE AV BLOCK NONSPECIFIC ST & T-WAVE ABNORMALITY ABNORMAL ECG NO PREVIOUS TRACING DOCTOR: Jarocho Green Interpretating Date/Time 04/24/2017 09:47:48
--- NOTE | 2017-04-24 12:37 | HHI.FPPN ---
Subjective Remarks POD # 1 s/p ORIF right ankle. Pain well controlled. Just received IV morphine 4 mg. No other concerns. Sitting in chair at bedside. Objective Vitals Vital Signs Date Time Temp Pulse Resp B/P Pulse Ox O2 Delivery O2 Flow Rate FiO2 04/24/17 12:00 96.9 69 18 152/74 94 04/24/17 08:12 95 21 04/24/17 08:00 96.0 60 18 109/67 92 04/24/17 03:29 98.4 55 19 103/64 93 04/24/17 00:28 98.0 58 20 103/71 92 04/23/17 23:10 98.3 55 20 119/65 94 04/23/17 21:00 Room Air 04/23/17 16:00 97.1 56 18 110/65 95 I/O 04/23/17 04/23/17 04/23/17 04/24/17 04/24/17 04/24/17 07:00 15:00 23:00 07:00 15:00 23:00 Intake Total 0 ml 1280 ml 840 ml Output Total 500 ml 30 ml 800 ml Balance -500 ml 1250 ml 40 ml Intake Oral 0 ml 480 ml 840 ml IV Total 100 ml Other 700 ml Output Urine Total 500 ml 800 ml Estimated Blood Loss 30 ml # Voids 3 2 # Bowel Movements 0 0 0 Result Diagram: 04/24/1761104/24/17611 Imaging Last 72 hours Impressions Ankle X-Ray 04/23/17 0000 Signed Impressions: Service Date/Time: Sunday, April 23, 2017 09:11 - CONCLUSION: Anatomic alignment. Chriss Mc MD FACR Chest X-Ray 04/22/172136 Signed Impressions: Service Date/Time: Saturday, April 22, 2017 21:52 - CONCLUSION: 1. Cardiomegaly. Dependent atelectasis. No pneumothorax or significant effusion. Bright Ordaz MD Ankle X-Ray 04/22/172136 Signed Impressions: Service Date/Time: Saturday, April 22, 2017 21:47 - CONCLUSION: 1. Fracture with medial dislocation of the right ankle. Bright Ordaz MD Ankle X-Ray 04/22/17 0000 Signed Impressions: Service Date/Time: Saturday, April 22, 2017 22:38 - CONCLUSION: 1. Persistent medial subluxation of the distal tibia. Fractures of the lateral malleolus and posterior malleolus region. Bright Ordaz MD Objective Remarks GEN: NAD RESP: CTAB CV: Distant heart sounds, no murmurs GI: Large scar at midline, ++ BS, no guarding ot tenderness. RLE: +short leg splint. intact. NVI. full motion of knee and hip with no pain A/P Assessment and Plan Mr. Barba is a 65 yo male with PMH of HTN, hypercholesterolemia, insomnia, and chronic pain, presenting with an acute fracture of his distal fibula and medial dislocation of the distal tibia at the tibiotalar joint. Will be admitted for pain control and surgical correction. s/p ORIF day #1. Discharge Planning Today 04/24 or 04/25 once pain controlled with PO meds. Problem List: (1) Fracture dislocation of right ankle Status: Acute Plan: Xray in ED showing "Fracture with medial dislocation of right ankle." S/p ORIF Day #1. Consult orthopedics. We appreciate their care of Mr. Barba. Pain control as follows: 7.5/325 mg Lortab 1 tab pain 1-5, 2 tabs pain 6-10, IV morphine 2 mg breakthrough. NS 125 ml/hr - hold. (2) Hypercholesteremia Status: Acute Plan: Continue statin therapy. (3) Hypertension Status: Acute Plan: Continue home BP medication. Resume home amlodipine. Continue lisinopril 40 daily, HCTZ 25 daily, and metoprolol 200 ER daily. (4) Depression Status: Acute Plan: Continue home Effexor, and amitriptyline. Hold Cymbalta given similar MOA as Effexor. (5) Chronic pain Status: Acute Plan: Pain control as above. (6) Alcohol abuse Status: Acute Plan: CIWA protocol. (7) Nutrition, metabolism, and development symptoms Status: Acute Plan: Fluids: NS 125 ml.hr - hold Electrolytes: At goal DVT ppx: hold given poss of surgery wdw Dr. Nina. Problem Qualifiers (1) Fracture dislocation of right ankle: Qualified Code: S82.891A - Fracture dislocation of right ankle, closed, initial encounter Noe Muller MD R2 Apr 24, 2017 12:37
[2017-04-24] MEDS ORDERED: ACETAMINOPHEN/HYDROcodone 325 MG/10 MG TAB PO PRN (13:15)
[2017-04-24] MEDS: ACETAMINOPHEN/HYDROcodone 325 MG/10 MG TAB PO PRN ×2 (13:58→17:53)
[2017-04-24] MEDS: AMITRIPTYLINE HCL 25 MG TAB PO SCH (20:41)
[2017-04-24] MEDS: ATORVASTATIN 40 MG TAB PO SCH (20:41)
[2017-04-25] MEDS: ACETAMINOPHEN/HYDROcodone 325 MG/10 MG TAB PO PRN ×4 (00:04→12:32)
[2017-04-25 00:20] VITALS: BP 125/69; PULSE 57; RESP 19; TEMP 96.8; O2SAT 94
--- NOTE | 2017-04-25 06:37 | PD.ORT.PN ---
Subjective Subjective Remarks Progressing well with physical therapy no new complaints Objective Vitals Vital Signs Date Time Temp Pulse Resp B/P Pulse Ox O2 Delivery O2 Flow Rate FiO2 04/25/17 00:20 96.8 57 19 125/69 94 04/24/17 20:20 97.9 55 18 92/56 92 04/24/17 16:00 97.8 58 18 124/74 95 04/24/17 12:00 96.9 69 18 152/74 94 04/24/17 08:12 95 21 04/24/17 08:00 96.0 60 18 109/67 92 I/O 04/24/17 04/24/17 04/24/17 04/25/17 04/25/17 04/25/17 07:00 15:00 23:00 07:00 15:00 23:00 Intake Total 840 ml 1200 ml 480 ml Output Total 800 ml Balance 40 ml 1200 ml 480 ml Intake Oral 840 ml 1200 ml 480 ml Output Urine Total 800 ml # Voids 2 4 2 # Bowel Movements 0 0 1 Result Diagram: 04/24/1761104/24/17611 Imaging Last 24 hours Impressions Chest X-Ray 04/22/172136 Signed Impressions: Service Date/Time: Saturday, April 22, 2017 21:52 - CONCLUSION: 1. Cardiomegaly. Dependent atelectasis. No pneumothorax or significant effusion. Bright Ordaz MD Ankle X-Ray 04/22/172136 Signed Impressions: Service Date/Time: Saturday, April 22, 2017 21:47 - CONCLUSION: 1. Fracture with medial dislocation of the right ankle. Bright Ordaz MD Objective Remarks RLE: +short leg splint. intact. NVI. full motion of knee and hip with no pain Assessment & Plan Assessment and Plan 1) Right Ankle Fx/dislocation s/p ORIF - POD 4 -NWB -elevate -PT for gait training with walker -pain control -ortho cleared for DC home when safe with therapy and pain controlled. -f/u with [facility] or [facility] in 2 weeks Oswaldo Joseph Jr. Apr 25, 2017 06:37
[2017-04-25 08:00] VITALS: BP 125/80; PULSE 62; RESP 18; TEMP 99.1; O2SAT 93
[2017-04-25] MEDS: METOPROLOL SUCCINATE 50 MG EXTENDED RELEASE TAB PO SCH (08:24)
[2017-04-25] MEDS: GABAPENTIN 300 MG CAP PO SCH (08:24)
[2017-04-25] MEDS: HYDROCHLOROTHIAZIDE 25 MG TAB PO SCH (08:24)
[2017-04-25] MEDS: VENLAFAXINE HCL XR 75 MG CAP PO SCH (08:24)
[2017-04-25] MEDS: ASPIRIN EC 81 MG TABEC PO SCH (08:24)
[2017-04-25] MEDS: LISINOPRIL 20 MG TAB PO SCH (08:25)
[2017-04-25] MEDS: DOCUSATE SODIUM 50 MG/SENNA 8.6 MG TAB PO SCH (08:25)
[2017-04-25] MEDS: CALCIUM CARBONATE 1.25 GM (CA 500 MG) TAB PO SCH (08:25)
[2017-04-25] MEDS: SODIUM CHLORIDE 0.9% FLUSH 10 ML FLUSH IVF PRN (08:32)
--- NOTE | 2017-04-25 09:47 | HHI.DCPOC ---
Discharge Care Plan Goals to Promote Your Health * To prevent worsening of your condition and complications take all medications as prescribed * To maintain your health at the optimal level follow all discharge instructions Directions to Meet Your Goals Take your medications as prescribed Follow your dietary instruction Follow activity as directed Keep your appointments as scheduled Take your immunizations and boosters as scheduled If your symptoms worsen call your PCP, if no PCP go to Urgent Care Center or Emergency Room Smoking is Dangerous to Your Health. Avoid second hand smoke Call the 24-hour hour crisis hotline for domestic abuse at Nanci Kwan MD R3 Apr 25, 2017 09:47
[2017-04-25 12:00] VITALS: BP 139/75; PULSE 57; RESP 18; TEMP 98.5; O2SAT 92
--- NOTE | 2017-04-25 15:11 | HHI.FPPN ---
Subjective Remarks No acute events overnight. Afebrile, vital signs stable. Pain controlled on by mouth medications. Cleared by orthopedic surgery for discharge. (Nanci Kwan MD R3) Objective Vitals Vital Signs Date Time Temp Pulse Resp B/P Pulse Ox O2 Delivery O2 Flow Rate FiO2 04/25/17 12:00 98.5 57 18 139/75 92 04/25/17 08:00 99.1 62 18 125/80 93 04/25/17 00:20 96.8 57 19 125/69 94 04/24/17 20:20 97.9 55 18 92/56 92 04/24/17 16:00 97.8 58 18 124/74 95 I/O 04/24/17 04/24/17 04/24/17 04/25/17 04/25/17 04/25/17 07:00 15:00 23:00 07:00 15:00 23:00 Intake Total 840 ml 1200 ml 480 ml 240 ml 600 ml Output Total 800 ml 300 ml 1000 ml Balance 40 ml 1200 ml 480 ml -60 ml -400 ml Intake Oral 840 ml 1200 ml 480 ml 240 ml 600 ml Output Urine Total 800 ml 300 ml 1000 ml # Voids 2 4 2 # Bowel Movements 0 0 1 0 0 (Nanci Kwan MD R3) Result Diagram: 04/24/1761104/24/17 0612 Objective Remarks Gen.: No acute distress Head: Normocephalic. Atraumatic. EENT: Pupils equal round and reactive to light. Nose without drainage. Airway intact. Throat without injection. Cardiovascular: Regular rate and rhythm. No murmurs, rubs or gallops. Respiratory: Lungs clear to auscultation bilaterally. No wheezes or rhonchi. Abdomen: Soft, nontender, nondistended. No peritoneal signs. Musculoskeletal: No gross deformities. No edema. Right lower extremity in splint. Good perfusion to foot/toes. Skin: No obvious rashes or erythema. Neuro: Sensory and motor grossly intact. Cranial nerves II through XII grossly intact. Psych: Appropriate mood and affect (Nanci Kwan MD R3) A/P Assessment and Plan Mr. Barba is a 65 yo male with PMH of HTN, hypercholesterolemia, insomnia, and chronic pain, presenting with an acute fracture of his distal fibula and medial dislocation of the distal tibia at the tibiotalar joint. Will be admitted for pain control and surgical correction. s/p ORIF day #2. Discharge Planning To home today (Nanci Kwan MD R3) Attending Attestation Patient seen and examined Case reviewed and discussed Agree with plan of care as discussed with me and documented in the resident note. (Coni Nina MD) Problem List: (1) Fracture dislocation of right ankle Status: Acute Plan: Xray in ED showing "Fracture with medial dislocation of right ankle." S/p ORIF Day #2. Consult orthopedics. We appreciate their care of Mr. Barba. Pain control as follows: 7.5/325 mg Lortab 1 tab pain 1-5, 2 tabs pain 6-10 (2) Hypercholesteremia Status: Acute Plan: Continue statin therapy. (3) Hypertension Status: Acute Plan: Continue home BP medication. Resume home amlodipine. Continue lisinopril 40 daily, HCTZ 25 daily, and metoprolol 200 ER daily. (4) Depression Status: Acute Plan: Continue home Effexor, and amitriptyline. Hold Cymbalta given similar MOA as Effexor. (5) Chronic pain Status: Acute Plan: Pain control as above. (6) Alcohol abuse Status: Acute Plan: CIWA protocol. (7) Nutrition, metabolism, and development symptoms Status: Acute Plan: Fluids: Hep-Lock IV Electrolytes: Replete when necessary DVT ppx: Per Orthopedic surgery (Nanci Kwan MD R3) Problem Qualifiers (1) Fracture dislocation of right ankle: Qualified Code: S82.891A - Fracture dislocation of right ankle, closed, initial encounter Nanci Kwan MD R3 Apr 25, 2017 15:11 Coni Nina MD May 05, 2017 11:45
--- NOTE | 2017-04-25 15:15 | HHI.DS ---
Discharge Summary Admission Date Apr 22, 2017 at 23:36 Discharge Date: Apr 25, 2017 Admitting Diagnosis ankle fracture dislocation (1) Fracture dislocation of right ankle Diagnosis: Principal Plan: Xray in ED showing "Fracture with medial dislocation of right ankle." S/p ORIF Day #2. Consult orthopedics. We appreciate their care of Mr. Barba. Pain control as follows: 7.5/325 mg Lortab 1 tab pain 1-5, 2 tabs pain 6-10 (2) Hypercholesteremia Diagnosis: Secondary Plan: Continue statin therapy. (3) Hypertension Diagnosis: Secondary Plan: Continue home BP medication. Resume home amlodipine. Continue lisinopril 40 daily, HCTZ 25 daily, and metoprolol 200 ER daily. (4) Depression Diagnosis: Secondary Plan: Continue home Effexor, and amitriptyline. Hold Cymbalta given similar MOA as Effexor. (5) Chronic pain Diagnosis: Secondary Plan: Pain control as above. (6) Alcohol abuse Diagnosis: Secondary Plan: [place] protocol. Consultants Orthopedic surgery Procedures ORIF right ankle Brief History Mr. Barba is a pleasant 66-year-old male, with a past medical history of HTN, hypercholesterolemia, insomnia, and chronic pain,presenting with an acute fracture of his right fibula. He reports that he was drinking at his condo tonight. He missed his step, after he lost perception of the depth. He says that he was on the ground for 30 minutes, but he does not remember any of this. He denies hearing a pop or snap. He stumbled after twisting his ankle and denies falling down/hitting his head. He reports drinking 10 liqueur ([facility] and diet [employer]) tonight. He denies any previous withdrawal from EtOH. He denies any chest pain prior to falling or feeling lightheaded. +Headache, frontal 4 out of 10. New since fall. ROS negative for SOB, chest pain, palpitations, abdominal pain, change in vision. CBC/BMP: 04/24/17 0612 04/24/17 0612 Significant Findings Laboratory Tests Test 04/22/17 04/23/17 04/24/17 21:45 11:53 06:12 Monocytes (%) (Auto) 10.6 % 15.6 % (0.0-8.0) (0.0-8.0) Monocytes # (Auto) 1.1 TH/MM3 1.6 TH/MM3 (0-0.9) (0-0.9) Activated Partial 20.1 SEC Thromboplast Time (24.3-30.1) Blood Urea Nitrogen 19 MG/DL (7-18) 20 MG/DL (7-18) 21 MG/DL (7-18) Creatinine 1.33 MG/DL (0.60-1.30) Estimat Glomerular Filtration 54 ML/MIN (>89) 75 ML/MIN (>89) Rate Calcium Level 8.2 MG/DL 7.9 MG/DL 7.2 MG/DL (8.5-10.1) (8.5-10.1) (8.5-10.1) Ethyl Alcohol Level 188 MG/DL (0-5) Red Blood Count 4.19 MIL/MM3 (4.50-5.90) Hemoglobin 12.2 GM/DL (13.0-17.0) Hematocrit 36.2 % (39.0-51.0) Carbon Dioxide Level 32.5 MEQ/L (21.0-32.0) Protein Corrected Calcium 7.8 MG/DL (8.5-10.1) Total Protein 6.0 GM/DL (6.4-8.2) Imaging Last Impressions Ankle X-Ray 04/23/17 0000 Signed Impressions: Service Date/Time: Sunday, April 23, 2017 09:11 - CONCLUSION: Anatomic alignment. Chriss Mc MD FACR Chest X-Ray 04/22/177 Signed Impressions: Service Date/Time: Saturday, April 22, 2017 21:52 - CONCLUSION: 1. Cardiomegaly. Dependent atelectasis. No pneumothorax or significant effusion. Bright Ordaz MD PE at Discharge Gen.: No acute distress Head: Normocephalic. Atraumatic. EENT: Pupils equal round and reactive to light. Nose without drainage. Airway intact. Throat without injection. Cardiovascular: Regular rate and rhythm. No murmurs, rubs or gallops. Respiratory: Lungs clear to auscultation bilaterally. No wheezes or rhonchi. Abdomen: Soft, nontender, nondistended. No peritoneal signs. Musculoskeletal: No gross deformities. No edema. Right lower extremity in splint. Good perfusion to foot/toes. Skin: No obvious rashes or erythema. Neuro: Sensory and motor grossly intact. Cranial nerves II through XII grossly intact. Psych: Appropriate mood and affect Hospital Course Patient admitted for dislocated right ankle fracture with imaging as above. Orthopedic surgery consulted, performed ORIF on 04/23/17. Patient's hospital course was prolonged given his inability to achieve adequate pain control without IV medication. Discharged to home with pain medication as below and follow-up with orthopedic surgery in 2 weeks. Pt Condition on Discharge: Stable Discharge Disposition: Discharge Home Discharge Instructions DIET: Follow Instructions for: As Tolerated, No Restrictions Activities you can perform: Non Weight Bearing Follow up Referrals: Orthopedics - 05/07/17 @ [facility] New Medications: Calcium Carbonate-Vitamin D (Calcium 600+D 200) 600-200 Mg-Unit Tab 1 TAB PO BID Nutritional Supplement #30 Ref 0 TAB Cholecalciferol (Vitamin D3) 2,000 Unit Cap 2000 UNITS PO DAILY Nutritional Supplement #56 Ref 0 CAP Ergocalciferol (Ergocalciferol) 50,000 Unit Cap 35871 UNITS PO Q7D Nutritional Supplement #56 CAP Hydrocodone-Acetaminophen (Hydrocodone-Acetaminophen) 7.5-325 mg Tab 1 TAB PO Q4H PRN PAIN #60 Ref 0 TAB Walker/Adult/Folding (Walker/Adult/Folding) 1 Mis Mis 1 EA .ROUTE DIRECTED #1 Ref 0 EA Continued Medications: Amitriptyline (Amitriptyline) 25 Mg Tab 25 MG PO HS Control Depression #30 Ref 6 TAB Amlodipine (Amlodipine) 10 Mg Tab 10 MG PO DAILY Blood Pressure Management #30 Ref [address] (Aspirin EC) 81 Mg Tabdr 81 MG PO DAILY Ref 0 TAB Atorvastatin (Atorvastatin) 40 Mg Tab 40 MG PO HS Cholesterol Management #30 Ref 3 TAB Calcium Carbonate (Calcium) 600 Mg Tab 600 MG PO DAILY #60 Cyclobenzaprine (Flexeril) 10 Mg Tab 10 MG PO TID Muscle Spasm #270 Ref [address] (Cymbalta DR) 30 Mg Capdr 30 MG PO DAILY #60 Ref 0 CAP Flaxseed (Linseed) (Flaxseed Oil) 1,000 Mg Cap 1000 MG PO DAILY Nutritional Supplement Ref 0 CAP Gabapentin (Gabapentin) 600 Mg Tab 600 MG PO TID #90 Ref 3 TAB Hydrochlorothiazide (Hydrochlorothiazide) 25 Mg Tab 25 MG PO DAILY #90 Ref 5 TAB Lisinopril (Lisinopril) 40 Mg Tab 40 MG PO DAILY Blood Pressure Management #90 Ref 3 TAB Methylcobalamin (Q65-Vztczi) 1 Mg Chew 1 MG CHEW DAILY Nutritional Supplement Ref 0 TAB Metoprolol Succinate ER 24 HR (Metoprolol Succinate ER 24 HR) 200 Mg Tab 200 MG PO DAILY #30 Ref 6 TAB Tizanidine (Tizanidine) 2 Mg Tab 2 MG PO TID Muscle Spasm #90 Ref 4 TAB Venlafaxine ER 24 HR (Venlafaxine ER 24 HR) 75 Mg Tab 75 MG PO DAILY #90 Ref 3 TAB Vitamins C & E (Vitamin C) Cap Zolpidem (Zolpidem) 5 Mg Tab 5 MG PO HS PRN INSOMNIA #30 Ref 3 TAB Discontinued Medications: Hydrocodone-Acetaminophen ([place]) 5-325 mg Tab 1 TAB PO Q6H PRN PAIN #90 Ref 0 TAB Nanic Kwan MD R3 Apr 25, 2017 15:14
== END 2017-04-25 13:33 | disposition home or self-care (01) | DRG 493 ==
LOC: NEPC 21:32 → NEDA 23:36 → N06B 04-23 01:12
PROVIDERS: ADMIT Family Medicine; ATTEND Family Medicine
PROC: 0SSFXZZ Reposition Right Ankle Joint, External Approach (ICD-10-PCS; 2017-04-22)
PROC: 0QSJ04Z Reposition Right Fibula with Internal Fixation Device, Open Approach (ICD-10-PCS; principal; 2017-04-23 08:19)
DX: S82.831A Other fracture of upper and lower end of right fibula, initial encounter for closed fracture (principal); N17.9 Acute kidney failure, unspecified; Z90.3 Acquired absence of stomach [part of]; J44.9 Chronic obstructive pulmonary disease, unspecified; E78.00 Pure hypercholesterolemia, unspecified; F32.9 Major depressive disorder, single episode, unspecified; I10 Essential (primary) hypertension; G89.29 Other chronic pain; G47.00 Insomnia, unspecified; F10.10 Alcohol abuse, uncomplicated; Y90.6 Blood alcohol level of 120-199 mg/100 ml; M54.9 Dorsalgia, unspecified; Z98.84 Bariatric surgery status; Z90.49 Acquired absence of other specified parts of digestive tract; Z87.891 Personal history of nicotine dependence; W19.XXXA Unspecified fall, initial encounter; Y93.01 Activity, walking, marching and hiking; Y92.039 Unspecified place in apartment as the place of occurrence of the external cause
CPT/HCPCS: 27840; 71010; 73600; 73610; 76000; 80048; 80053; 80307; 84155; 85025; 85610; 85730; 86850; 86900; 86901; 93005; 94150; C1713; J0690; J1580; J2175; J2250; J2270; J2370; J2405; J3010; J3370; J7030; J7050; J7120

== ENCOUNTER → 2017-08-26 | Day surgery (SDC) | payer MEDICARE ==
[~2017-08-26] VITALS: Ht 172.7 cm; Wt 108.9 kg
[~2017-08-26] MED LIST changes: +*ONDANSETRON 4 MG VIAL PERIprocedural Use ONLY ONE; +*morphine SULFATE 8 MG/ML PERIprocedure ONLY ONE; +ACETAMINOPHEN 1000 MG/100 ML 100 ML IV ONE; +ACETAMINOPHEN/HYDROcodone 325 MG/5 MG TAB PO PRN; +BUPIVACAINE/EPINEPHRINE 0.25% 50 ML VIAL ONE; +CALCTAB19 PO; +CHLORHEXIDINE GLUCONATE 2 % 1 PACK (2 CLOTHS) TOPICAL PRN; +CYAN1TAB24 PO; -CYCL1TAB29 PO; -CYMB30CA PO; +DEXAMETHASONE SOD PHOS 4 MG/ML VIAL IV ONE; +DO NOT ADM ANY ANTICOAGULANT DRUGS PRN; +FAMOTIDINE 20 MG/2 ML VIAL ONE; +FLAX1000 PO; +GLYCOPYRROLATE 1 MG/5 ML SYRINGE IV PUSH ONE; +HYDR-3516 PO; +INSULIN HUMAN REGULAR 1,000 UNITS/10 ML VIAL SQ PRN; +LACTATED RINGER'S 1000 ML INJ 1,000 ML IV ONE; +LACTATED RINGER'S 1000 ML IV PRN; +LIDOCAINE HCL 1% PF 5 ML AMPULE OTHER ONE; +METOPROLOL TARTRATE 25 MG TAB PO PRN; +METRONIDAZOLE 500 MG/100 ML ISONTONIC SOLN IV SCH; +MIDAZOLAM HCL 2 MG/2 ML VIAL IV ONE; +MORPHINE SULFATE 4 MG/ML INJ IV PRN; -NORC5TAB PO; +ONDANSETRON HCL 4 MG/2 ML VIAL IV PRN; +ONDANSETRON HCL 4 MG/2 ML VIAL IV PUSH ONE; +PHENYLEPH/NS 1000 MCG/10 ML SYR IV ONE; +POVIDONE IODINE 5% (ANTISEPSIS KIT) 4 APPLICATIONS EACH NARE PRN; +PROPOFOL 200 MG/20 ML AMP IV ONE; +ROCURONIUM INJ 50 MG/5 ML SYRINGE IV PUSH ONE; +SODIUM CHLORID 0.9% 500 ML IV PRN; +SUCCINYLCHOLINE CHLORIDE 100 MG/5 ML SYRINGE IV PUSH ONE; +SUGAMMADEX SODIUM 200 MG/2 ML VIAL IV PUSH ONE; +VENL75CA44 PO; +VITA2000 PO; +VITA250T3 PO; +WALKER/ADULT/FO1 MIS; +ceFAZolin 2 GM PREMIX 50 ML IV SCH; +ePHEDrine/NS 25 MG/5 ML SYR IV ONE; +hydrALAZINE HCL 20 MG/ML VIAL IV ONE
--- NOTE | 2017-08-26 10:46 | PD.OP ---
Operative Report Date of Surgery: Aug 26, 2017 Preoperative Diagnosis: calculous cholecystitis, cholelithiasis, Gb sludge Postoperative Diagnosis: same, intra abdominal adhesions Procedure: lap adhesiolysis, lap kellee Anesthesia: general Surgeon: Stalin Wren Range Scientist(s): Karin Zuniga MS3 Operation and Findings: adhesions at midline s/p multiple previous abdominal surgeries, omental adhesions covering the liver and GB. Large GB removed and sent to pathology. EBL less than 10 ml. Stalin Wren MD Aug 26, 2017 10:46
[2017-08-26 12:06] VITALS: BP 116/69; PULSE 66; RESP 22; TEMP 97; O2SAT 96
--- NOTE | 2017-08-26 12:21 | MP ---
cc: BOBBY FALLON M.D. DATE OF SURGERY: 08/26/2017 PREOPERATIVE DIAGNOSIS: Calculous cholecystitis cholelithiasis gallbladder sludge. POSTOPERATIVE DIAGNOSIS Calculous cholecystitis cholelithiasis gallbladder sludge. intra-abdominal adhesions. PROCEDURE: Laparoscopic adhesiolysis Laparoscopic cholecystectomy. SURGEON Dr. Bobby Fallon SHOE MAKER: Karin Zuniga MS3. ANESTHESIA; General. INDICATIONS FOR PROCEDURE: This is a very pleasant 66-year-old gentleman was had multiple previous abdominal surgeries elsewhere. He has had chronic recurrent complaints of right upper quadrant pain within 5 minutes of eating. Ultrasound demonstrated gallstones and gallbladder sludge. The pain radiates around to the right side of the back. INTRAOPERATIVE FINDINGS Adhesions of the omentum covering the liver and the gallbladder. Adhesions of omentum and small bowel to the midline. Large gallbladder removed and sent to pathology. ESTIMATED BLOOD LOSS: Estimated blood loss less than 10 M L. DESCRIPTION OF PROCEDURE IN DETAIL The patient identified as Chriss Barba, taken to the operating room and placed in the supine position. Sequential compression devices were placed on bilateral lower extremities. Following induction of adequate general tracheal anesthesia the patient's abdomen was prepped and draped in usual sterile fashion with Betadine. A time-out procedure was performed. Following completion of time-out procedure everyone's satisfaction within the room 0.25% Marcaine with epinephrine was placed at each incision site. A right lateral subcostal 2-1/2 cm transverse incision was carried out with scalpel dissection posteriorly with a using a hemostat to the anterior fascia. This was spread with a hemostat. The underlying muscle spread with the surgeon's finger and the posterior fascia and peritoneum entered in the direct subcostal position using the surgeon's finger. The applied medical 10 mm blunt tip balloon was placed in the peroneal cavity balloon inflated to insufflation to level of 15 mmHg ensued. The laparoscopic camera was placed into the peritoneal cavity and omentum. Adhesions from the midline extending into the right upper quadrant were identified as site in the inferior right lateral abdomen about 2 cm above the level of the umbilicus was selected for 5 mm trocar incision site and the trocar was placed without difficulty under direct laparoscopic view after incision skin with a scalpel. Using blunt dissection the harmonic scalpel adhesiolysis was performed allowing for clearing of omental adhesions and the adhesions of the transverse colon to the anterior abdominal wall. Clearing the right upper quadrant upper midline for two additional 5-mm trocar placement. These trocars were placed in the upper abdomen just to the right of the midline after incision skin with scalpel under direct laparoscopic view. This allowed for retraction of the a healthy omentum inferiorly. The evin flex liver retractor was placed through the initial lab right lateral subcostal trocar site to retract the omentum inferiorly. This allowed for identification of the gallbladder. The gallbladder was removed from the gallbladder fossa in a dome down technique using the harmonic scalpel. Cystic artery was divided harmonic scalpel. The cystic duct was isolated from surrounding tissues 0-PDS Endoloops were placed one on the proximal and distal one of the distal cystic duct. The cystic duct was divided between the Endoloops and the gallbladder placed into an Endo retriever bag and the gallbladder and in the bag was removed through the right lateral subcostal incision site and passed off the field for pathologic evaluation. Small amount of bloody drainage was suctioned out the gallbladder fossa was hemostatic. The cystic arterial stump was hemostatic. The cystic duct was securely ligated. Remaining local anesthetic was placed in subhepatic position. Trocars were removed under direct visualization. There was no evidence of bleeding from the trocar sites. The right lateral subcostal trocar was used to desufflate the abdomen and was then removed. The posterior fascia peritoneum were closed with two interrupted 0 Vicryl [id number] sutures. The anterior fascia was closed with 2-0 Vicryl [id number] sutures. Skin incisions were approximated 4-0 Monocryl subcuticular sutures. Dressings were applied with Mastisol half inch brown Steri-Strips. The patient tolerated the procedure without apparent complication. Sponge, needle and instrument counts were correct at the end of case. MD RICARDO Finnegan/lacie /10:41 AM /11:08 AM
== END | disposition home or self-care (01) ==
LOC: HSDC 06:39
PROVIDERS: ATTEND Surgery Trauma Surgery
DX: K80.10 Calculus of gallbladder with chronic cholecystitis without obstruction (principal); K66.0 Peritoneal adhesions (postprocedural) (postinfection); I10 Essential (primary) hypertension
CPT/HCPCS: 00790; 47562; 88304; J0131; J0330; J0360; J0690; J1100; J2250; J2270; J2370; J2405; J3010; J7120